=== PATIENT | male | born 1980 | race Caucasian/White ===

== ENCOUNTER 2016-10-22 01:06 | Emergency (ER) | payer OTHER ==
[~2016-10-22] VITALS: Ht 162.6 cm; Wt 136.1 kg
[2016-10-22 01:17] VITALS: BP 171/91
--- NOTE | 2016-10-22 01:22 | ED UPPER/LOWER EXTREMITY COMPL ---
History of Present Illness General Chief Complaint: Lower Extremity Problems Stated Complaint: "RT LEG NERVE PAIN [id number]" Source: patient Exam Limitations: no limitations Vital Signs & Intake/Output Vital Signs & Intake/Output Vital Signs Date Time Temp Pulse Resp B/P Pulse O2 O2 Flow FiO2 Ox Delivery Rate 10/22 0117 97.6 126 20 171/91 99 Room Air Allergies Coded Allergies: NO KNOWN ALLERGIES (NONE) (11/25/10) Reconcile Medications Cyclobenzaprine HCl 10 MG TABLET 1 TAB PO 4 TIMES/DAY PRN MUSCLE SPASM Ibuprofen 800 MG TABLET 1 TAB PO TID PRN pain Oxycodone HCl/Acetaminophen (Percocet 5-325 MG Tablet) 5 MG-325 MG TABLET 1 TAB PO 4XDP PRN PAIN TEN...[id number] Triage Note: PT TO ED WITH COMPLAINT OF SEVERE PAIN IN R LEG. PT STATES PAIN HAS BEEN THIS SEVERE FOR OVER A WEEK NOW. PT STARTS IN RIGHT BUTTOCKS AND RADIATES DOWN R LEG. PT HAS BEEN TAKING MOTRION AND OTHER OTC MEDS WITH RELIEF. PT STATES HE HAS HAD THIS PAIN IN THE PAST BUT NEVER THIS BAD. Triage Nurses Notes Reviewed? yes Onset: Gradual Duration: week(s):, waxing and waning Timing: recent history Severity: mild Severity Numbers: 5 Pain/Injury Location: Right: Leg. Method of Injury: unknown Modifying Factors: Worsens With: movement. Associated Symptoms: muscle spasm HPI: 36-year-old gentleman, history of diabetes, presents with right leg pain for the past several weeks. Past History Travel History Traveled to [place] past 21 day No Medical History Any Pertinent Medical History? see below for history Cardiovascular: hypertension, hyperlipidemia Endocrine: diabetes Surgical History Surgical History: non-contributory Psychosocial History What is your primary language Amharic Tobacco Use: Current Daily Use Daily Tobacco Use Amount/Type: => 5 Cigarettes daily ETOH Use: denies use Illicit Drug Use: denies illicit drug use Family History Hx Contributory? No Review of Systems Review of Systems Constitutional: Reports: no symptoms. EENTM: Reports: no symptoms. Respiratory: Reports: no symptoms. Cardiovascular: Reports: no symptoms. Gastrointestinal/Abdominal: Reports: no symptoms. Genitourinary: Reports: no symptoms. Musculoskeletal: Reports: no symptoms. Skin: Reports: no symptoms. Neurological/Psychological: Reports: no symptoms. Hematologic/Endocrine: Reports: no symptoms. Immunological: Reports: no symptoms. All Other Systems: Reviewed and Negative Physical Exam Physical Exam General Appearance: well developed/nourished, mild distress Head: atraumatic Eyes: Bilateral: PERRL, EOMI. Ears, Nose, Throat: normal pharynx, normal ENT inspection, hearing grossly normal Neck: normal inspection, supple Cardiovascular/Respiratory: regular rate/rhythm Back: normal inspection, normal range of motion, no vertebral tenderness Leg Right: muscle spasm on right hamstring. no edema bilaterally. strength/ light touch intact bilaterally. Skin: intact, normal color, warm/dry Lymphatic: no anterior cervical paulo Progress Differential Diagnosis: muscle spasm vs neuropathy vs other. Plan of Care: pt with benign exam... supportive medications rx written for patient... close follow up advised. Departure Departure Disposition: HOME OR SELF CARE Condition: Stable Clinical Impression Primary Impression: Muscle spasm Referrals: CLAUDIA WOLF,SUMIT Garcia (PCP/Family) Departure Forms: Customer Survey General Discharge Information Prescriptions: Current Visit Scripts Ibuprofen 1 TAB PO TID PRN pain #60 TAB Oxycodone HCl/Acetaminophen (Percocet 5-325 MG Tablet) 1 TAB PO 4XDP PRN PAIN #10 TAB TEN...[id number] Cyclobenzaprine HCl 1 TAB PO 4 TIMES/DAY PRN MUSCLE SPASM #30 TAB Ref 1 Comments pt with benign exam... muscle spasm in right hamstring... pt safe for discharge with supportive measures... encouraged close follow up with pmd.
[2016-10-22] MEDS ORDERED: CYCLOBENZAPRINE10 M1 PO (01:41)
[2016-10-22] MEDS ORDERED: PERCOCET 5-3251 EACH PO (01:41)
[2016-10-22] MEDS ORDERED: IBUPROFEN800 M1 PO (01:41)
== END 2016-10-22 01:45 ==
LOC: ERH 01:06
DX: M62.838 Other muscle spasm (principal)

== ENCOUNTER 2017-07-22 06:05 | Emergency (ER) | payer OTHER ==
[~2017-07-22] VITALS: Ht 162.6 cm; Wt 131.5 kg
[~2017-07-22 06:05] MED LIST: CYCLOBENZAPRINE10 M1 PO; IBUPROFEN800 M1 PO; PERCOCET 5-3251 EACH PO
--- NOTE | 2017-07-22 06:13 | ED CARDIAC/CP/PALPITATIONS ---
History of Present Illness General Chief Complaint: General Adult Stated Complaint: CHEST TIGHTNESS Source: patient Exam Limitations: no limitations Vital Signs & Intake/Output Vital Signs & Intake/Output Vital Signs Date Time Temp Pulse Resp B/P B/P Pulse O2 O2 Flow FiO2 Mean Ox Delivery Rate 07/22 1024 98.5 67 20 118/60 96 Room Air 07/22 0807 96.6 73 20 103/55 97 Room Air 07/22 0700 97 07/22 0613 96.8 74 16 130/84 97 Room Air Room Air Allergies Coded Allergies: NO KNOWN ALLERGIES (NONE) (11/25/10) Reconcile Medications Atorvastatin Calcium 20 MG TABLET 1 TAB PO DAILY HTN (Reported) Cyclobenzaprine HCl 10 MG TABLET 1 TAB PO 4 TIMES/DAY PRN MUSCLE SPASM Dapagliflozin Propanediol (Farxiga) 10 MG TABLET 1 TAB PO DAILY DM (Reported) Diltiazem HCl (Diltiazem 24HR ER) 240 MG CAP.ER.24H 1 CAP PO DAILY HTN ( Reported) Ibuprofen 800 MG TABLET 1 TAB PO TID PRN pain Metoprolol Succinate 100 MG TAB.ER.24H 1 TAB PO DAILY HTN (Reported) Oxycodone HCl/Acetaminophen (Percocet 5-325 MG Tablet) 5 MG-325 MG TABLET 1 TAB PO 4XDP PRN PAIN TEN...[id number] Triage Nurses Notes Reviewed? yes Onset: Gradual Duration: day(s): Timing: recent history Quality/Severity: mild Location: central Radiation: no radiation Activities at Onset: none Prior Chest Pain/Card Workup: no prior chest pain Aspirin Today: no aspirin today Associated Symptoms: chest pain, mild cough HPI: 37 yo gentleman with 3-4 days of diffuse central chest tightness, occasional cough. He notes his symptoms are improved usually with ambulation, occasionally occur while lying flat. He notes his cough is dry, non productive. He notes no fever, chills, dyspnea, wheezing, nausea, vomiting, diarrhea. (Garett WOLF,Jovanny Smith) Past History Travel History Traveled to [place] past 21 day No Medical History Any Pertinent Medical History? see below for history Cardiovascular: hypertension, hyperlipidemia Endocrine: diabetes Surgical History Surgical History: non-contributory Psychosocial History What is your primary language Palauan Family History Hx Contributory? No (Garett WOLF,Jovanny Smith) Review of Systems Review of Systems Constitutional: Reports: no symptoms. EENTM: Reports: no symptoms. Respiratory: Reports: no symptoms. Cardiovascular: Reports: no symptoms. GI: Reports: no symptoms. Genitourinary: Reports: no symptoms. Musculoskeletal: Reports: no symptoms. Skin: Reports: no symptoms. Neurological/Psychological: Reports: no symptoms. Hematologic/Endocrine: Reports: no symptoms. Immunologic/Allergic: Reports: no symptoms. All Other Systems: Reviewed and Negative (Garett WOLF,Jovanny Smith) Physical Exam Physical Exam General Appearance: well developed/nourished, no apparent distress Head: atraumatic, normal appearance Eyes: Bilateral: normal appearance. Ears, Nose, Throat: normal pharynx, normal ENT inspection Neck: normal inspection, supple, full range of motion Respiratory: normal breath sounds, chest non-tender, no respiratory distress, quiet respiration, lungs clear Cardiovascular: regular rate/rhythm Gastrointestinal: normal bowel sounds, soft, non-tender Back: normal inspection, normal range of motion Extremities: normal inspection, normal capillary refill Neurologic/Psych: no motor/sensory deficits, awake, alert, oriented x 3 Skin: intact, normal color, warm/dry Core Measures ACS in differential dx? Yes No ASA d/t aspirin given CVA/TIA Diagnosis No Sepsis Present: No Sepsis Focused Exam Completed? No (Garett WOLF,Jovanny Smith) Progress Differential Diagnosis: chest pain, Plan of Care: Orders Procedure Date/time Status Heart Healthy Diet 07/22 L Active TROPONIN LEVEL 07/22 0930 Complete EKG 07/22 0930 Active TROPONIN LEVEL 07/22 0625 Complete COMPREHENSIVE METABOLIC PANEL 07/22 0625 Complete CBC WITHOUT DIFFERENTIAL 07/22 0625 Complete EKG 07/22 0609 Active Laboratory Tests 07/22/17 0936: Troponin I < 0.01 07/22/17 0640: Anion Gap 11, Estimated GFR > 60, BUN/Creatinine Ratio 15.7, Glucose 104 H, Calcium 9.5, Total Bilirubin 1.0, AST 46, ALT 72, Alkaline Phosphatase 45, Troponin I < 0.01, Total Protein 7.0, Albumin 4.6, Globulin 2.4, Albumin/ Globulin Ratio 1.9, CBC w Diff NO MAN DIFF REQ, RBC 5.35, MCV 89.9, MCH 30.4, RDW 13.9, MPV 7.3 L, Gran % 58.0, Lymphocytes % 32.5, Monocytes % 7.4, Eosinophils % 1.6, Basophils % 0.5, Absolute Granulocytes 4.2, Absolute Lymphocytes 2.4, Absolute Monocytes 0.5, Absolute Eosinophils 0.1, Absolute Basophils 0, PUBS MCHC 33.8 Diagnostic Imaging: Viewed by Me: Radiology Read. Discussed w/RAD: Radiology Read. Initial ED EKG: normal axis, normal intervals, normal p-waves, normal QRS complex, normal sinus rhythm Hand-Off Endorsed To: Raphael Moe MD Endorsed Time: 0700 Pending: labs, Xray (Garett WOLF,Jovanny Smith) CXR Impression: PATIENT: ISRAEL ZEE V PRESENT AGE : 37 PATIENT ACCOUNT NO: [id number] : 79 LOCATION: [facility] ORDERING PHYSICIAN: Jovanny Bajwa MD SERVICE DATE: 07/22/17 EXAM TYPE: RAD - XRY-PORTABLE CHEST XRAY EXAMINATION: XR PORTABLE CHEST CLINICAL INFORMATION: Chest pain. COMPARISON: Prior chest regressed dated 10/30/2006. TECHNIQUE: Portable frontal view of the chest was obtained. FINDINGS: No significant abnormality is noted involving the heart, lungs, mediastinum, bony thorax or soft tissues. Lung volumes are low, with generalized crowding of bronchovascular and pulmonary parenchymal markings. IMPRESSION: Unremarkable examination., Limited by portable technique and a suboptimal respiratory depth. DICTATED BY: Haja Keys MD DATE/TIME DICTATED:07/22/17756 OFFICE RUNNER:ABEL DATE/TIME TRANSCRIBED:07/22/17756 CONFIDENTIAL, DO NOT COPY WITHOUT APPROPRIATE AUTHORIZATION. <Electronically signed in Other Vendor System> SIGNED BY: Haja Keys MD 07/22/17 0801 (Raphael Moe MD) Departure Departure Condition: Stable Clinical Impression Primary Impression: Chest pain Departure Forms: Customer Survey General Discharge Information Comments 07/22/16, 7:00am... pt is PERC negative. ekg benign... I discussed with patient at length... pt will stay for trop/ekg x 2. Pt signed out to dr. moe, labs, cxr pending. (Garett WOLF,Jovanny Smith) Departure Disposition: HOME OR SELF CARE Referrals: Titi WOLFJakob Additional Instructions: FOLLOW UP WITH DR. WEBER RETURN FOR ANY CONCERNS (Abhi WOLF,Raphael Noel) Critical Care Note Critical Care Note Critical Care Time: non-applicable (Garett WOLF,Jovanny Smith)
[2017-07-22] MEDS ORDERED: DILTIAZEM 24HR240 MG PO (06:21)
[2017-07-22] MEDS ORDERED: METOPROLOL SUC100 M2 PO (06:21)
[2017-07-22] MEDS ORDERED: ATORVASTATIN CA20 M1 PO (06:21)
[2017-07-22] MEDS ORDERED: FARXIGA10 M1 PO (06:22)
[2017-07-22 06:54] LABS: ABSOLUTE BASOPHIL COUNT 0 /CUMM (0.0-0.2); ABSOLUTE EOSINOPHIL COUNT 0.1 /CUMM (0.0-0.7); ABSOLUTE GRANULOCYTE CT 4.2 /CUMM (1.4-6.5); ABSOLUTE LYMPH COUNT 2.4 /CUMM (1.2-3.4); ABSOLUTE MONOCYTE COUNT 0.5 /CUMM (0.10-0.60); BASOPHIL % 0.5 % (0.0-2.0); EOSINOPHIL % 1.6 % (0-5); HEMATOCRIT 48.1 % (42-52); MEAN CORPUSCULAR HGB 30.4 PG (27.0-31.0); MEAN CORPUSCULAR HGB CONC 33.8 G/DL (33.0-37.0); MEAN CORPUSCULAR VOLUME 89.9 FL (80.0-94.0); MEAN PLATELET VOLUME 7.3 FL (7.4-10.4); PLATELET COUNT 276 /CUMM (130-400); RBC DISTRIBUTION WIDTH 13.9 % (11.5-14.5); RED BLOOD CELL CT 5.35 /CUMM (4.70-6.10); WHITE BLOOD CELL COUNT 7.3 /CUMM (4.8-10.8)
--- NOTE | 2017-07-22 08:01 | RADIOLOGY REPORT ---
EXAMINATION: XR PORTABLE CHEST CLINICAL INFORMATION: Chest pain. COMPARISON: Prior chest regressed dated 10/30/2006. TECHNIQUE: Portable frontal view of the chest was obtained. FINDINGS: No significant abnormality is noted involving the heart, lungs, mediastinum, bony thorax or soft tissues. Lung volumes are low, with generalized crowding of bronchovascular and pulmonary parenchymal markings. IMPRESSION: Unremarkable examination., Limited by portable technique and a suboptimal respiratory depth.
[2017-07-22 10:24] VITALS: BP 118/60
== END 2017-07-22 10:58 ==
LOC: ERH 06:05
PROVIDERS: Pediatrics
DX: R07.89 Other chest pain (principal)
CPT/HCPCS: 1263; 1395; 71045; 93005; 93010; 96374; J1885